=== PATIENT | female | born 1955 | race Caucasian/White ===

== ENCOUNTER 2020-04-25 10:09 | Outpatient (REF) | payer OTHER, SELFPAY ==
[2020-04-25 12:06] LABS: MANUAL DIFF FLAG NO
[2020-04-25 12:17] LABS: Basophils Absolute Auto 0.1 X10*3/uL (0.0-0.2); Basophils Percent Auto 1.3 % (0-2); Eosinophils Absolute Auto 0.2 X10*3/uL (0.0-0.4); Eosinophils Percent Auto 3.3 % (0-4); Hematocrit 46.5 % (37-47); Hemoglobin 14.9 g/dl (12.0-16.0); Imm Gran Abs Auto 0.01 X10*3/uL (0.00-0.03); Imm Gran Pct Auto 0.2 % (0.0-0.4); Lymphocytes Absolute Auto 2.2 X10*3/uL (1.2-4.9); Mean Corpuscular Volume 90.5 fL (80-98); Mean Platelet Volume 11.9 fL (9.4-12.3); Monocytes Absolute Auto 0.4 X10*3/uL (0.1-1.2); Monocytes Percent Auto 6.8 % (2-11); Neutrophils Absolute Auto 3.3 X10*3/uL (2.0-8.3); Neutrophils Percent Auto 53.4 % (45-73); Platelet Count 296 X10*3/uL (160-400); Red Blood Count 5.14 X10*6/uL (4.20-5.50); Red Cell Distribution Width 13.2 % (11.0-16.0); White Blood Count 6.2 X10*3/uL (4.8-10.8)
[2020-04-25 12:32] LABS: C Reactive Protein 1.03 mg/dL (< or = 0.50); Rheumatoid Factor < 15.0 IU/mL (<15.0)
[2020-04-25 12:48] LABS: Anion Gap 12 (12-20); Blood Urea Nitrogen 17 mg/dL (9-16); Calcium 8.9 mg/dL (8.4-10.2); Carbon Dioxide 25 mmol/L (22-29); Chloride 109 mmol/L (96-108); Estimated Glomerular Filt Rate 52; Glucose Random 93 mg/dL (60-115); Potassium 4.6 mmol/l (3.3-5.1); Sodium 141 mmol/L (135-145)
[2020-04-25 12:57] LABS: TSH reflex Free T4 2.97 mIU/mL (0.32-4.0)
[2020-04-25 13:01] LABS: Erythrocyte Sedimentation Rate 12 MM/HR (0-20)
[2020-04-26 13:57] LABS: Lyme Abs Screen <0.90 index
[2020-04-28 15:26] LABS: Anti Nuclear Antibody Screen NEGATIVE (NEGATIVE)
== END 2020-04-25 10:10 | disposition home or self-care (01) ==
LOC: HO.LAB 10:09
PROVIDERS: PCP Internal Medicine; Visit Provider Internal Medicine
DX: H83.03 Labyrinthitis, bilateral (principal); H46.9 Unspecified optic neuritis
CPT/HCPCS: 36415; 80048; 84443; 85025; 85652; 86038; 86039; 86140; 86431; 86618

== ENCOUNTER 2020-08-02 10:50 | Outpatient (REF) | payer OTHER, SELFPAY ==
[2020-08-02 11:28] LABS: MANUAL DIFF FLAG NO
[2020-08-02 11:32] LABS: Basophils Absolute Auto 0.1 X10*3/uL (0.0-0.2); Basophils Percent Auto 1.1 % (0-2); Eosinophils Absolute Auto 0.2 X10*3/uL (0.0-0.4); Eosinophils Percent Auto 3.2 % (0-4); Hematocrit 47.2 % (37-47); Hemoglobin 15.1 g/dl (12.0-16.0); Imm Gran Abs Auto 0.01 X10*3/uL (0.00-0.03); Imm Gran Pct Auto 0.2 % (0.0-0.4); Lymphocytes Absolute Auto 2.2 X10*3/uL (1.2-4.9); Lymphocytes Percent Auto 34.2 % (20-40); Mean Corpuscular Hemoglobin 29.2 pg (27.0-33.0); Mean Corpuscular Volume 91.3 fL (80-98); Mean Platelet Volume 11.1 fL (9.4-12.3); Monocytes Absolute Auto 0.4 X10*3/uL (0.1-1.2); Monocytes Percent Auto 6.2 % (2-11); Neutrophils Absolute Auto 3.5 X10*3/uL (2.0-8.3); Neutrophils Percent Auto 55.1 % (45-73); Platelet Count 275 X10*3/uL (160-400); Red Blood Count 5.17 X10*6/uL (4.20-5.50); Red Cell Distribution Width 13.3 % (11.0-16.0); White Blood Count 6.3 X10*3/uL (4.8-10.8)
[2020-08-02 11:42] LABS: Glucose Urine UA NEG (NEG); Leukocyte Esterase Urine 1+ (NEG); Nitrite Urine NEG (NEG); UACC Culture Trigger YES; Urine Blood NEG (NEG); Urine Ketones NEG (NEG); Urine Protein NEG (NEG-TRACE)
[2020-08-02 11:43] LABS: Appearance Urine CLEAR; Color Urine YELLOW
[2020-08-02 11:52] LABS: RBC Urine 0-2 /HPF (0); Squamous Epithelial Cell Urine TRACE /LPF
[2020-08-02 12:12] LABS: Erythrocyte Sedimentation Rate 6 MM/HR (0-20)
[2020-08-02 12:13] LABS: Alanine Aminotransferase 26 U/L (0-31); Albumin Level 4.5 g/dL (3.5-5.0); Alkaline Phosphatase 69 U/L (39-117); Anion Gap 11 (12-20); Aspartate Amino Transferase 19 U/L (5-31); Bilirubin Total 0.5 mg/dL (0.0-1.0); Blood Urea Nitrogen 14 mg/dL (9-16); Carbon Dioxide 26 mmol/L (22-29); Chloride 109 mmol/L (96-108); Cholesterol 225 mg/dL; Estimated Glomerular Filt Rate 51; Glucose Fasting 103 mg/dL (60-99); HDL Cholesterol 52 mg/dL; LDL Cholesterol Calculated 140 mg/dl; Potassium 4.4 mmol/l (3.3-5.1); Sodium 142 mmol/L (135-145); Total Protein 6.8 g/dL (6.5-8.0); Triglycerides 165 mg/dL
[2020-08-04 05:37] LABS: Folate 14.1 ng/mL (> or = 4.0); Vitamin B12 248 pg/mL (200-900)
== END 2020-08-02 10:51 | disposition home or self-care (01) ==
LOC: HO.LAB 10:50
PROVIDERS: PCP Internal Medicine; Visit Provider Internal Medicine
DX: E78.5 Hyperlipidemia, unspecified (principal); Z86.73 Personal history of transient ischemic attack (TIA), and cerebral infarction without residual deficits
CPT/HCPCS: 36415; 80053; 80061; 81001; 81003; 82607; 82746; 84443; 85025; 85652; 87086

== ENCOUNTER 2021-01-29 11:49 | Outpatient (REF) | payer MEDICARE, SELFPAY ==
[2021-01-29 12:56] LABS: MANUAL DIFF FLAG NO
[2021-01-29 13:06] LABS: Basophils Percent Auto 0.7 % (0-2); Eosinophils Absolute Auto 0.2 X10*3/uL (0.0-0.4); Eosinophils Percent Auto 3.2 % (0-4); Hematocrit 46.1 % (37-47); Hemoglobin 14.5 g/dl (12.0-16.0); Imm Gran Abs Auto 0.01 X10*3/uL (0.00-0.03); Imm Gran Pct Auto 0.2 % (0.0-0.4); Lymphocytes Absolute Auto 1.7 X10*3/uL (1.2-4.9); Lymphocytes Percent Auto 30.4 % (20-40); Mean Corpuscular HGB Conc 31.5 g/dl (31.0-35.0); Mean Platelet Volume 11.4 fL (9.4-12.3); Monocytes Absolute Auto 0.4 X10*3/uL (0.1-1.2); Monocytes Percent Auto 6.8 % (2-11); Neutrophils Absolute Auto 3.3 X10*3/uL (2.0-8.3); Neutrophils Percent Auto 58.7 % (45-73); Platelet Count 271 X10*3/uL (160-400); Red Blood Count 5.18 X10*6/uL (4.20-5.50); Red Cell Distribution Width 13.3 % (11.0-16.0); White Blood Count 5.6 X10*3/uL (4.8-10.8)
[2021-01-29 13:28] LABS: Anion Gap 12 (12-20); Blood Urea Nitrogen 15 mg/dL (9-16); Calcium 9.7 mg/dL (8.4-10.2); Carbon Dioxide 25 mmol/L (22-29); Chloride 110 mmol/L (96-108); Estimated Glomerular Filt Rate 44; Glucose Random 106 mg/dL (60-115); Potassium 4.5 mmol/L (3.3-5.1); Sodium 142 mmol/L (135-145)
[2021-01-29 13:51] LABS: T4 Thyroxine 7.8 ug/dL (4.5-12.0); Thyroid Stimulating Hormone 2.44 uIU/mL (0.32-4.0)
[2021-01-29 13:52] LABS: Erythrocyte Sedimentation Rate 7 MM/HR (0-20)
[2021-01-30 12:11] LABS: Lyme Abs Screen <0.90 index
[2021-02-02 17:57] LABS: Anti Nuclear Antibody Screen NEGATIVE (NEGATIVE)
== END 2021-01-29 11:50 | disposition home or self-care (01) ==
LOC: HO.LAB 11:49
PROVIDERS: PCP Internal Medicine; Visit Provider Psychiatry & Neurology Neurology
DX: G43.109 Migraine with aura, not intractable, without status migrainosus (principal)
CPT/HCPCS: 36415; 80048; 84436; 84443; 85025; 85652; 86038; 86039; 86617; 86618

== ENCOUNTER → 2021-02-18 08:29 | Outpatient (BNVA) | payer MEDICARE, SELFPAY | PROVIDERS: PCP Internal Medicine; Visit Provider Obstetrics & Gynecology ==

== ENCOUNTER 2021-06-23 08:28 | Outpatient (REF) | payer MEDICARE, SELFPAY ==
--- NOTE | ~2021-06-23 | MM_ITS ---
EXAMINATION: BONE DENSITOMETRY CLINICAL INDICATION: Asymptomatic menopausal state. COMPARISON: None (current study represents initial baseline exam). TECHNIQUE: Using a [employer] DXA System (software version: 13.1) manufactured by [employer], dual-energy x-ray absorptiometry was performed of the lumbar spine and left hip. The images are of good technical quality. Summary results are attached. FINDINGS: AP SPINE L1-L4: BMD 1.057 g/cm2, Z-score 0.1, T-score -1.0, normal. LEFT FEMUR, NECK: BMD 0.866 g/cm2, Z-score 0.0, T-score -1.2, osteopenia. LEFT FEMUR, TOTAL: BMD 0.987 g/cm2, Z-score 0.8, T-score -0.2, normal. IDENTIFIED RISK FACTORS: Recurrent falls, low calcium intake, anticonvulsants, menopause. HISTORY OF FRACTURE: None listed. MEDICATIONS: Multivitamin. MM/XR DEXA axial skeleton IMPRESSION: 1. DIAGNOSIS: Osteopenia based on the lowest T-score value of -1.2 in the femoral neck applying World Health Organization criteria. 2. 10-YEAR FRACTURE RISK PREDICTION, FRAX: Major osteoporotic fracture (clinical spine, forearm, hip or shoulder) 8.1%. Hip fracture 0.7%. 3. Treatment Recommendations: NOF guidelines recommend consideration for treatment in postmenopausal women and men age 50 and older presenting with the following: -A hip or vertebral (clinical or morphometric) fracture. -T-score less than or equal to -2.5 at the femoral neck or spine after appropriate evaluation to exclude secondary causes. -Low bone mass at the hip or spine and a 10-year fracture probability by FRAX of greater than or equal to 3% for hip fracture or greater than or equal to 20% for major osteoporotic fracture based on the [place] adapted WHO algorithm. 4. Other Recommendations: All treatment decisions require clinical judgment and consideration of individual patient factors, including patient preferences, comorbidities, previous drug use, risk factors not captured in the FRAX model (e.g. frailty, falls, vitamin D deficiency, increased bone turnover, interval significant decline in bone density) and possible under or overestimation of fracture risk by FRAX. Additional medical evaluation for secondary cause of low bone mineral density may be appropriate. FUTURE SCAN RECOMMENDATION: People with diagnosed cases of osteoporosis or at high risk for fracture should have regular bone mineral density tests. For patients eligible for Medicare, routine testing is allowed once every 2 years. The testing frequency can be increased to one year for patients who have rapidly progressing disease, those who are receiving or discontinuing medical therapy to restore bone mass, or have additional risk factors.
--- NOTE | ~2021-06-23 | MM_ITS ---
EXAMINATION: MM SCREENING DIGITAL BREAST TOMOSYNTHESIS, BILATERAL CLINICAL INFORMATION: Screening. Asymptomatic. The lifetime risk of breast cancer based on the Tyrer-Cuzick Model is 8%. COMPARISON: Outside mammography: 12/27/2018, 12/26/2017, 12/21/2016 ([facility]) TECHNIQUE: Digital breast tomosynthesis is performed in both the craniocaudal and mediolateral oblique views along with computer-aided detection (CAD). Synthesized 2D images are generated from the tomosynthesis. Additional left MLO view is provided. FINDINGS: There are scattered areas of fibroglandular density (ACR BI-RADS breast composition Category b). Parenchymal pattern is similar to prior outside exam. Fine fibronodular parenchymal pattern with minor nodularity are stable. There is no interval developing density or significant mass or architectural abnormality. No abnormal calcifications. The axilla and skin contours are unremarkable. MM/MM tomosynthesis screening BI IMPRESSION: No mammographic evidence of malignancy. ASSESSMENT: BI-RADS 2: Benign RECOMMENDATION: Routine annual mammography screening. This patient's information was entered into a reminder system with a target due date for their next mammogram.
== END 2021-06-23 08:29 | disposition home or self-care (01) ==
LOC: HO.MAMMO 08:28
PROVIDERS: Visit Provider Obstetrics & Gynecology
DX: Z12.31 Encounter for screening mammogram for malignant neoplasm of breast (principal); Z13.820 Encounter for screening for osteoporosis; M85.80 Other specified disorders of bone density and structure, unspecified site; Z78.0 Asymptomatic menopausal state; Z79.899 Other long term (current) drug therapy
CPT/HCPCS: 77063; 77067; 77080

== ENCOUNTER → 2021-07-13 15:48 | Outpatient (BNVA) | payer MEDICARE, SELFPAY | PROVIDERS: PCP Internal Medicine; Visit Provider Obstetrics & Gynecology | DX: M85.80 Other specified disorders of bone density and structure, unspecified site (principal) | CPT/HCPCS: Q3014 ==

== ENCOUNTER 2021-08-13 14:00 | Outpatient (RCR) | payer MEDICARE, SELFPAY ==
--- NOTE | 2021-10-28 07:41 | MHC.PT.DC ---
[facility] [place] [facility] [place] [facility] [place] [facility] [address] [phone] F: [phone] F: [phone] F: [phone] F: [phone] Physical Therapy Discharge Report Diagnosis: Lumbar DDD Date of Surgery: n/a Date of Evaluation: 05/26/21 Date of Discharge: 08/29/21 Treatments to Date: 14 Cancellations to Date: 0 No Shows to Date: 0 Discharge Status: Achieved Goals Improved Function Independent with HEP Discharge Summary: Pt met or progressed towards all STG and LTG. She is happy with progress and can appreciate functional improvements including walking, standing, lifting and transfers. She is I with HEP And appropriate to d/c to HEP at this time. Issued updated HEP today. Electronically signed by: Praveen Goins, PT Please sign and return to therapist. Thank you for your referral.
== END 2021-10-28 07:42 | disposition home or self-care (01) ==
LOC: HO.PTCHIC 14:00
PROVIDERS: PCP Internal Medicine; Visit Provider Nurse Practitioner Family
DX: M51.36 Other intervertebral disc degeneration, lumbar region (principal); R25.1 Tremor, unspecified; R53.1 Weakness
CPT/HCPCS: 97110; 97112; 97140; 97163; 97535

== ENCOUNTER 2021-10-27 11:18 | Outpatient (REF) | payer MEDICARE, SELFPAY ==
[2021-10-27 13:44] LABS: MANUAL DIFF FLAG NO
[2021-10-27 13:58] LABS: Basophils Absolute Auto 0.1 X10*3/uL (0.0-0.2); Basophils Percent Auto 1.2 % (0-2); Eosinophils Absolute Auto 0.3 X10*3/uL (0.0-0.4); Eosinophils Percent Auto 4.1 % (0-4); Imm Gran Abs Auto 0.02 X10*3/uL (0.00-0.03); Imm Gran Pct Auto 0.3 % (0.0-0.4); Lymphocytes Absolute Auto 2.3 X10*3/uL (1.2-4.9); Lymphocytes Percent Auto 35.2 % (20-40); Mean Corpuscular HGB Conc 31.3 g/dl (31.0-35.0); Mean Corpuscular Hemoglobin 27.8 pg (27.0-33.0); Mean Corpuscular Volume 89.1 fL (80.0-98.0); Mean Platelet Volume 11.2 fL (9.4-12.3); Monocytes Absolute Auto 0.5 X10*3/uL (0.1-1.2); Monocytes Percent Auto 7.4 % (2-11); Neutrophils Absolute Auto 3.5 x10*3/uL (2.0-8.3); Neutrophils Percent Auto 51.8 % (45-73); Platelet Count 302 X10*3/uL (160-400); Red Blood Count 5.39 X10*6/uL (4.20-5.50); White Blood Count 6.7 X10*3/uL (4.8-10.8)
[2021-10-27 14:18] LABS: Alanine Aminotransferase 24 U/L (0-31); Albumin Level 4.3 g/dL (3.5-5.0); Alkaline Phosphatase 65 U/L (39-117); Anion Gap 13 (12-20); Aspartate Amino Transferase 21 U/L (5-31); Bilirubin Total 0.6 mg/dL (0.0-1.0); Blood Urea Nitrogen 15 mg/dL (9-16); Calcium 9.2 mg/dL (8.4-10.2); Carbon Dioxide 22 mmol/L (22-29); Chloride 108 mmol/L (96-108); Cholesterol 251 mg/dL; Estimated Glomerular Filt Rate 42; Glucose Fasting 106 mg/dL (60-99); HDL Cholesterol 48 mg/dL; LDL Cholesterol Calculated 172 mg/dl; Potassium 4.2 mmol/L (3.3-5.1); Sodium 139 mmol/L (135-145); Total Protein 6.8 g/dL (6.5-8.0); Triglycerides 159 mg/dL
[2021-10-27 14:33] LABS: Vitamin B12 180 pg/mL (200-900)
[2021-10-27 14:37] LABS: Erythrocyte Sedimentation Rate 7 MM/HR (0-20)
== END 2021-10-27 11:19 | disposition home or self-care (01) ==
LOC: HO.HMGCLDS 11:18
PROVIDERS: PCP Internal Medicine; Visit Provider Psychiatry & Neurology Neurology
DX: E78.00 Pure hypercholesterolemia, unspecified (principal); E55.9 Vitamin D deficiency, unspecified; G45.9 Transient cerebral ischemic attack, unspecified; E53.8 Deficiency of other specified B group vitamins; R51.9 Headache, unspecified
CPT/HCPCS: 36415; 80053; 80061; 82306; 82607; 82746; 85025; 85652; 86140

== ENCOUNTER → 2021-12-30 09:57 | Outpatient (REF) | payer MEDICARE, SELFPAY ==
--- NOTE | 2021-12-30 10:03 | ECG_ITS ---
Test Reason : CHEST PAIN,JAW PAIN, EAR PAIN Blood Pressure : / mmHG Vent. Rate : 076 BPM Atrial Rate : 076 BPM P-R Int : 202 ms QRS Dur : 080 ms QT Int : 404 ms P-R-T Axes : 063 032 073 degrees QTc Int : 454 ms Normal sinus rhythm Cannot rule out Anterior infarct , age undetermined Abnormal ECG No previous ECGs available Referred By: Rigoberto Daniel Electronically Signed By:ENRIQUETA NOLAND MD
[2021-12-30 10:56] LABS: Troponin-I High Sensitivity < 3.5 ng/L (<3.5-17.0)
[2021-12-30 11:03] LABS: C Reactive Protein 1.19 mg/dL (< or = 0.50)
[2021-12-30 11:25] LABS: Erythrocyte Sedimentation Rate 10 MM/HR (0-20)
[2022-01-01 17:11] LABS: Homocysteine 13.7 umol/L (<10.4)
[2022-01-03 17:52] LABS: CK-BB None Detected (None Detected); CK-MB 0 % (<5); CK-MM 100 % (95-100); Creatine Kinase,Total,Serum 54 U/L (29-143)
== END ==
LOC: HO.CARD 09:57
PROVIDERS: PCP Internal Medicine; Visit Provider Internal Medicine
DX: I20.8 Other forms of angina pectoris (principal); R68.84 Jaw pain
CPT/HCPCS: 36415; 82552; 83090; 84484; 85652; 86140; 93005

== ENCOUNTER → 2022-02-25 10:05 | Outpatient (BNVA) | payer MEDICARE, SELFPAY | PROVIDERS: PCP Internal Medicine; Visit Provider Obstetrics & Gynecology | DX: Z01.419 Encounter for gynecological examination (general) (routine) without abnormal findings (principal) | CPT/HCPCS: 99212 ==

== ENCOUNTER 2022-04-26 10:16 | Outpatient (REF) | payer MEDICARE, SELFPAY ==
[2022-04-26 10:39] LABS: MANUAL DIFF FLAG NO
[2022-04-26 11:46] LABS: Basophils Absolute Auto 0.1 X10*3/uL (0.0-0.2); Eosinophils Absolute Auto 0.4 X10*3/uL (0.0-0.4); Hematocrit 46.7 % (37.0-47.0); Hemoglobin 14.8 g/dl (12.0-16.0); Imm Gran Abs Auto 0.02 X10*3/uL (0.00-0.03); Imm Gran Pct Auto 0.3 % (0.0-0.4); Lymphocytes Absolute Auto 2.1 X10*3/uL (1.2-4.9); Lymphocytes Percent Auto 29.3 % (20-40); Mean Corpuscular HGB Conc 31.7 g/dl (31.0-35.0); Mean Corpuscular Volume 88.3 fL (80.0-98.0); Monocytes Absolute Auto 0.5 X10*3/uL (0.1-1.2); Monocytes Percent Auto 6.8 % (2-11); Neutrophils Absolute Auto 4.1 x10*3/uL (2.0-8.3); Neutrophils Percent Auto 57.6 % (45-73); Platelet Count 252 X10*3/uL (160-400); Red Blood Count 5.29 X10*6/uL (4.20-5.50); Red Cell Distribution Width 14.1 % (11.0-16.0)
[2022-04-26 12:10] LABS: Alanine Aminotransferase 18 U/L (0-31); Albumin Level 4.4 g/dL (3.5-5.0); Alkaline Phosphatase 67 U/L (39-117); Anion Gap 17 (12-20); Aspartate Amino Transferase 16 U/L (5-31); Bilirubin Total 0.6 mg/dL (0.0-1.0); Blood Urea Nitrogen 15 mg/dL (9-16); Calcium 9.2 mg/dL (8.4-10.2); Carbon Dioxide 23 mmol/L (22-29); Chloride 107 mmol/L (96-108); Cholesterol 261 mg/dL; Estimated Glomerular Filt Rate 47; Glucose Fasting 103 mg/dL (60-99); HDL Cholesterol 50 mg/dL; LDL Cholesterol Calculated 175 mg/dl; Magnesium 2.3 mg/dL (1.6-2.6); Potassium 4.7 mmol/L (3.3-5.1); Sodium 142 mmol/L (135-145); Total Protein 7.1 g/dL (6.5-8.0); Triglycerides 180 mg/dL
[2022-04-26 12:28] LABS: TSH reflex Free T4 3.69 uIU/mL (0.32-4.0); Vitamin D 25-OH Total 46.8 ng/mL (>30)
[2022-04-26 12:31] LABS: Folate 7.1 ng/mL (> or = 4.0); Vitamin B12 577 pg/mL (200-900)
== END 2022-04-26 10:17 | disposition home or self-care (01) ==
LOC: HO.LAB 10:16
PROVIDERS: PCP Internal Medicine; Visit Provider Internal Medicine
DX: E83.42 Hypomagnesemia (principal); E78.00 Pure hypercholesterolemia, unspecified; I10 Essential (primary) hypertension; E53.8 Deficiency of other specified B group vitamins
CPT/HCPCS: 36415; 80053; 80061; 82306; 82607; 82746; 83735; 84443; 85025

== ENCOUNTER 2022-04-29 12:36 | Outpatient (REF) | payer MEDICARE, SELFPAY ==
[2022-04-29 14:12] LABS: Alanine Aminotransferase 17 U/L (0-31); Albumin Level 4.5 g/dL (3.5-5.0); Alkaline Phosphatase 66 U/L (39-117); Anion Gap 17 (12-20); Aspartate Amino Transferase 18 U/L (5-31); Blood Urea Nitrogen 12 mg/dL (9-16); Calcium 9.3 mg/dL (8.4-10.2); Carbon Dioxide 19 mmol/L (22-29); Chloride 110 mmol/L (96-108); Cholesterol 240 mg/dL; Estimated Glomerular Filt Rate 48; Glucose Fasting 97 mg/dL (60-99); HDL Cholesterol 49 mg/dL; LDL Cholesterol Calculated 161 mg/dl; Potassium 4.3 mmol/L (3.3-5.1); Sodium 142 mmol/L (135-145); Total Protein 7.3 g/dL (6.5-8.0); Triglycerides 150 mg/dL
[2022-04-29 14:46] LABS: Bilirubin Total 0.4 mg/dL (0.0-1.0)
[2022-05-04 22:32] LABS: Intrinsic Factor Antibodies Negative (Negative)
[2022-05-05 10:11] LABS: Methylmalonic Acid 144 nmol/L (87-318)
== END 2022-04-29 12:37 | disposition home or self-care (01) ==
LOC: HO.LAB 12:36
PROVIDERS: PCP Internal Medicine; Visit Provider Internal Medicine
DX: D51.0 Vitamin B12 deficiency anemia due to intrinsic factor deficiency (principal); E78.00 Pure hypercholesterolemia, unspecified
CPT/HCPCS: 36415; 80053; 80061; 83921; 86340

== ENCOUNTER 2022-08-18 16:19 | Outpatient (REF) | payer MEDICARE, SELFPAY ==
--- NOTE | ~2022-08-18 | US_ITS ---
EXAMINATION: US PELVIS CLINICAL INFORMATION: Abnormal findings on other diagnostic imaging. COMPARISON: None TECHNIQUE: Ultrasound of the pelvis is performed using both transabdominal and transvaginal transducers along with Doppler. Transvaginal imaging is performed due to inadequate visualization transabdominally. FINDINGS: Uterus: The uterus is anteverted and measures 6.9 x 4.0 x 4.4 cm. The double wall endometrial thickness is 1.4 mm. The endometrium appears heterogeneous and there is a question of a 5 x 3 mm polypoid mass. The uterus is smooth in contour and has normal myometrial echogenicity. No visible fibroid. Nabothian cysts are present in the cervix. Adnexa: Both ovaries are visualized. There is normal color flow to the adnexa. There is no ovarian torsion. There is no pelvic ascites or fluid collection. Right ovary measures 2.5 x 1.8 x 1.5 cm for a volume of 3.5 mL. Left ovary measures 2.0 x 0.9 x 0.8 cm for a volume of 0.8 mL. US/US pelvic and transvaginal IMPRESSION: The endometrium is thickened and heterogeneous with a question of a 5 x 3 mm polypoid mass. A follow-up ultrasound in one to two months could be performed to see if this is persistent and if so, hysteroscopy or hysterosonography may be of value for further evaluation.
== END 2022-08-18 16:20 | disposition home or self-care (01) ==
LOC: HO.US 16:19
PROVIDERS: Visit Provider Obstetrics & Gynecology
DX: R93.89 Abnormal findings on diagnostic imaging of other specified body structures (principal)
CPT/HCPCS: 76830; 76856

== ENCOUNTER → 2022-09-01 10:54 | Outpatient (BNVA) | payer MEDICARE, SELFPAY | PROVIDERS: PCP Internal Medicine; Visit Provider Obstetrics & Gynecology | DX: R93.5 Abnormal findings on diagnostic imaging of other abdominal regions, including retroperitoneum (principal) | CPT/HCPCS: 99212 ==

== ENCOUNTER 2022-09-10 09:50 | Outpatient (REF) | payer MEDICARE, SELFPAY ==
--- NOTE | ~2022-09-10 | MM_ITS ---
EXAMINATION: MM SCREENING DIGITAL BREAST TOMOSYNTHESIS, BILATERAL CLINICAL INFORMATION: Screening. Asymptomatic. The lifetime risk of breast cancer based on the Tyrer-Cuzick Model is 7%. COMPARISON: Mammography: 06/23/2021; outside mammography 12/27/2018, 12/26/2017 ([place]) TECHNIQUE: Digital breast tomosynthesis is performed in both the craniocaudal and mediolateral oblique views along with computer-aided detection (CAD). Synthesized 2D images are generated from the tomosynthesis. Additional right MLO view is provided. FINDINGS: There are scattered areas of fibroglandular density (ACR BI-RADS breast composition Category b). There are no significant masses, abnormal calcifications, or other abnormalities. Minor fibronodular densities are similar to prior exam. No developing density. No architectural abnormality or significant changes from prior studies. The axilla and skin contours are unremarkable. MM/MM tomosynthesis screening BI IMPRESSION: No mammographic evidence of malignancy. ASSESSMENT: BI-RADS 2: Benign RECOMMENDATION: Routine annual mammography screening. This patient's information was entered into a reminder system with a target due date for their next mammogram.
== END 2022-09-10 09:51 | disposition home or self-care (01) ==
LOC: HO.MAMMO 09:50
PROVIDERS: PCP Internal Medicine; Visit Provider Internal Medicine
DX: Z12.31 Encounter for screening mammogram for malignant neoplasm of breast (principal)
CPT/HCPCS: 77063; 77067

== ENCOUNTER 2022-09-17 08:44 | Day surgery (SDC) | payer MEDICARE, SELFPAY ==
[2022-09-13 20:07] VITALS: BMI 28.3
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
[2022-09-17] VITALS (11 sets, daily range): BP systolic 118–161; BP diastolic 54–84; PULSE 61–89; RESP 12–20; TEMP 36.2–36.9; O2SAT 97–98; BMI 28.3
--- NOTE | 2022-09-17 09:24 | MHC.SHP ---
Pre-Procedural Eval Section A Date of Service: 09/17/22 The patient is an INPATIENT: No Changes since office visit: No Cold of Flu in the past 2 weeks, No New Medical Problems, No Changes in Medication and No Patient answered all questions The History & Physical has been completed within 30 days and I have reviewed it.: Yes Section B Chief Complaint: Abnormal findings on diagnostic imaging of other Allergies: Allergies Allergy/AdvReac Type Severity Reaction Status Date / Time meperidine [Demerol] Allergy Severe anaphylaxis Verified 09/01/22 11:01 topiramate [Topamax] Allergy Mild metallic Verified 09/01/22 11:01 taste lactose Allergy Unknown Unknown Verified 09/01/22 11:01 Plan Diagnosis/Plan: Unchanged I have reviewed the history and physical and performed a pertinent physical examination on my patient. No changes have occurred unless specified. Time Spent With Patient Time: Total time managing care of this patient today ____ minutes.
[2022-09-17] MEDS: Lactated Ringers 1,000 ML 100 ML IVCONT (09:34)
--- NOTE | 2022-09-17 10:53 | P.OP_ITS ---
Operative Note Operative Note Date of Service: 09/17/22 Narrative: Preop Diagnosis: Endometrial polyp by US Operation: Diagnostic Hysteroscopy, Dilataion & Curettage and polypectomy Post Op Diagnosis: Endometrial Polyp QBL: Minimal Anesthesia: GLMA Surgeon: Toney Jarrell MD Digital Account Supervisor: None Complication: None Pathology: Endometrial Scrapings, Endometrial polyp Procedure: The patient was put in the dorsal lithotomy position, scrubbed, and draped in the usual manner. A sterile speculum was inserted in the patient's vagina. The anterior lip of the cervix was grasped with a single tooth tenaculum. The cervix was dilated up to 5 mm, then the scope was inserted in the patient's uterus. Inspection revealed endometrial polyp. The Myosure Reach device was used; it was introduced through the operative channel and polypectomy done with no complications. The scope was then taken out from the uterine cavity, sharp curettings was carried on with minimal to moderate amount of tissues retrieved. At the end of the procedure, all instruments were taken out of the patient uterine and vaginal cavity. The single tooth tenaculum was removed and homeostasis was assured using pressure,. The patient tolerated the procedure well and was transferred to the PACU in a stable condition.
--- NOTE | 2022-09-17 10:53 | P.BOP_ITS ---
Brief Operative Note Date of Service: 09/17/22 Pre-op diagnosis: Endometrial polyp by ultrasound Post-op diagnosis: same Procedure: Hysteroscopy D&C, Polypectomy Surgeon: Toney Jarrell MD Anesthesia: GLMA Was an Electronics System Mechanic used for this Procedure?: No Estimated blood loss (mL): 0 Pathology: other (Endometrial Scrapping. Polyp) Condition: stable Disposition: PACU
[2022-09-17] MEDS: fentaNYL citrate/PF 100 MCG/2 ML VIAL 25 MCG IVPUSH (11:46)
[2022-09-17] MEDS: Ketorolac Tromethamine 30 MG/ML VIAL 15 MG IVPUSH (11:51)
[2022-09-17] MEDS: Acetaminophen 325 MG TABLET 650 MG PO (11:54)
== END 2022-09-17 13:56 | disposition home or self-care (01) ==
PROVIDERS: PCP Internal Medicine; Visit Provider Obstetrics & Gynecology
PROC: 0UDB8ZZ Extraction of Endometrium, Via Natural or Artificial Opening Endoscopic (ICD-10-PCS; CPT 58558; principal; 2022-09-17 10:30)
DX: N85.02 Endometrial intraepithelial neoplasia [EIN] (principal); E78.5 Hyperlipidemia, unspecified; R25.1 Tremor, unspecified; G93.89 Other specified disorders of brain; Z86.73 Personal history of transient ischemic attack (TIA), and cerebral infarction without residual deficits; G43.109 Migraine with aura, not intractable, without status migrainosus; G96.191 Perineural cyst; E66.3 Overweight; Z68.29 Body mass index [BMI] 29.0-29.9, adult; Z79.899 Other long term (current) drug therapy; Z88.8 Allergy status to other drugs, medicaments and biological substances
CPT/HCPCS: 58558; 88305; J1885; J2405; J3010

== ENCOUNTER → 2022-09-22 13:28 | Outpatient (BNVA) | payer MEDICARE, SELFPAY | PROVIDERS: PCP Internal Medicine; Visit Provider Obstetrics & Gynecology | DX: N85.02 Endometrial intraepithelial neoplasia [EIN] (principal); E53.8 Deficiency of other specified B group vitamins; E55.9 Vitamin D deficiency, unspecified; Z78.0 Asymptomatic menopausal state | CPT/HCPCS: 99212 ==

== ENCOUNTER 2022-12-30 10:55 | Outpatient (REF) | payer MEDICARE, SELFPAY ==
[2022-12-30 11:11] LABS: MANUAL DIFF FLAG NO
[2022-12-30 12:00] LABS: Basophils Absolute Auto 0.1 X10*3/uL (0.0-0.2); Eosinophils Absolute Auto 0.2 X10*3/uL (0.0-0.4); Eosinophils Percent Auto 2.8 % (0-4); Hematocrit 45.5 % (37.0-47.0); Hemoglobin 14.6 g/dl (12.0-16.0); Imm Gran Abs Auto 0.01 X10*3/uL (0.00-0.03); Imm Gran Pct Auto 0.2 % (0.0-0.4); Lymphocytes Absolute Auto 1.8 X10*3/uL (1.2-4.9); Mean Corpuscular HGB Conc 32.1 g/dl (31.0-35.0); Mean Corpuscular Hemoglobin 28.5 pg (27.0-33.0); Mean Corpuscular Volume 88.7 fL (80.0-98.0); Mean Platelet Volume 11.4 fL (9.4-12.3); Monocytes Absolute Auto 0.4 X10*3/uL (0.1-1.2); Neutrophils Absolute Auto 3.7 x10*3/uL (2.0-8.3); Platelet Count 278 X10*3/uL (160-400); Red Blood Count 5.13 X10*6/uL (4.20-5.50); Red Cell Distribution Width 13.3 % (11.0-16.0); White Blood Count 6.1 X10*3/uL (4.8-10.8)
[2022-12-30 12:53] LABS: Alanine Aminotransferase 16 U/L (0-31); Albumin Level 4.3 g/dL (3.5-5.0); Alkaline Phosphatase 57 U/L (39-117); Anion Gap 10 (12-20); Aspartate Amino Transferase 15 U/L (5-31); Bilirubin Total 0.7 mg/dL (0.0-1.0); Blood Urea Nitrogen 14 mg/dL (9-16); Calcium 8.9 mg/dL (8.4-10.2); Carbon Dioxide 25 mmol/L (22-29); Chloride 112 mmol/L (96-108); Cholesterol 252 mg/dL; Estimated Glomerular Filt Rate 45; Glucose Fasting 100 mg/dL (60-99); HDL Cholesterol 49 mg/dL; LDL Cholesterol Calculated 167 mg/dl; Sodium 143 mmol/L (135-145); Total Protein 7.1 g/dL (6.5-8.0); Triglycerides 184 mg/dL; Vitamin D 25-OH Total 63.4 ng/mL (>30)
[2022-12-30 13:06] LABS: Folate 6.9 ng/mL (> or = 4.0); Vitamin B12 1314 pg/mL (200-900)
== END 2022-12-30 10:56 | disposition home or self-care (01) ==
LOC: HO.LAB 10:55
PROVIDERS: PCP Internal Medicine; Visit Provider Internal Medicine
DX: I10 Essential (primary) hypertension (principal); E53.8 Deficiency of other specified B group vitamins; E78.00 Pure hypercholesterolemia, unspecified; E55.9 Vitamin D deficiency, unspecified
CPT/HCPCS: 36415; 80053; 80061; 82306; 82607; 82746; 84443; 85025

== ENCOUNTER 2023-05-06 11:03 | Outpatient (REF) | payer MEDICARE, SELFPAY ==
[2023-05-06 11:16] LABS: MANUAL DIFF FLAG NO
[2023-05-06 11:59] LABS: Basophils Absolute Auto 0.1 X10*3/uL (0.0-0.2); Basophils Percent Auto 1.1 % (0-2); Eosinophils Absolute Auto 0.2 X10*3/uL (0.0-0.4); Eosinophils Percent Auto 3.3 % (0-4); Hematocrit 45.5 % (37.0-47.0); Hemoglobin 14.5 g/dl (12.0-16.0); Imm Gran Abs Auto 0.01 X10*3/uL (0.00-0.03); Imm Gran Pct Auto 0.2 % (0.0-0.4); Lymphocytes Absolute Auto 2.1 X10*3/uL (1.2-4.9); Lymphocytes Percent Auto 37.7 % (20-40); Mean Corpuscular HGB Conc 31.9 g/dl (31.0-35.0); Mean Corpuscular Hemoglobin 28.8 pg (27.0-33.0); Mean Corpuscular Volume 90.3 fL (80.0-98.0); Mean Platelet Volume 11.4 fL (9.4-12.3); Monocytes Absolute Auto 0.4 X10*3/uL (0.1-1.2); Neutrophils Absolute Auto 2.8 x10*3/uL (2.0-8.3); Neutrophils Percent Auto 50.7 % (45-73); Platelet Count 314 X10*3/uL (160-400); Red Blood Count 5.04 X10*6/uL (4.20-5.50); Red Cell Distribution Width 13.4 % (11.0-16.0); White Blood Count 5.5 X10*3/uL (4.8-10.8)
[2023-05-06 12:46] LABS: Alanine Aminotransferase 12 U/L (0-31); Albumin Level 4.3 g/dL (3.5-5.0); Alkaline Phosphatase 54 U/L (39-117); Anion Gap 13 (12-20); Aspartate Amino Transferase 15 U/L (5-31); Bilirubin Total 0.4 mg/dL (0.0-1.0); Blood Urea Nitrogen 14 mg/dL (9-16); Calcium 9.4 mg/dL (8.4-10.2); Carbon Dioxide 24 mmol/L (22-29); Chloride 107 mmol/L (96-108); Cholesterol 245 mg/dL (<200); Estimated Glomerular Filt Rate 44; Glucose Fasting 106 mg/dL (60-99); HDL Cholesterol 41 mg/dL (>40); LDL Cholesterol Calculated 174 mg/dL (<100); Potassium 4.1 mmol/L (3.3-5.1); Sodium 140 mmol/L (135-145); Triglycerides 154 mg/dL (<150)
[2023-05-06 13:02] LABS: TSH reflex Free T4 2.54 uIU/mL (0.32-4.0); Vitamin D 25-OH Total 87.3 ng/mL (>30)
[2023-05-06 13:10] LABS: Folate 4.2 ng/mL (> or = 4.0); Vitamin B12 1783 pg/mL (200-900)
== END 2023-05-06 11:04 | disposition home or self-care (01) ==
LOC: HO.LAB 11:03
PROVIDERS: PCP Internal Medicine; Visit Provider Internal Medicine
DX: E78.00 Pure hypercholesterolemia, unspecified (principal); E55.9 Vitamin D deficiency, unspecified; E53.8 Deficiency of other specified B group vitamins; I10 Essential (primary) hypertension
CPT/HCPCS: 36415; 80053; 80061; 82306; 82607; 82746; 84443; 85025

== ENCOUNTER 2023-05-09 10:49 | Outpatient (AMB) | payer MEDICARE, SELFPAY ==
[2023-05-09 10:55] VITALS: BP 126/78; PULSE 75; O2SAT 98; BMI 26.2
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
== END 2023-05-09 12:00 | disposition home or self-care (01) ==
PROVIDERS: PCP Internal Medicine; Visit Provider Internal Medicine
DX: G93.9 Disorder of brain, unspecified (principal); E53.8 Deficiency of other specified B group vitamins; G43.909 Migraine, unspecified, not intractable, without status migrainosus; E78.2 Mixed hyperlipidemia; M53.9 Dorsopathy, unspecified; N85.02 Endometrial intraepithelial neoplasia [EIN]; E66.3 Overweight
CPT/HCPCS: 99499

== ENCOUNTER 2023-05-09 13:47 | Outpatient (REF) | payer MEDICARE, SELFPAY ==
[2023-05-09 14:05] LABS: Appearance Urine Clear; Color Urine Yellow; Glucose Urine UA Negative (Negative); Leukocyte Esterase Urine Small (1+) (Negative); Nitrite Urine Negative (Negative); PH 6.5 (5.0-9.0); UMIC TRIGGER UACC YES; Urine Blood Negative (Negative); Urine Ketones Negative (Negative); Urine Protein Negative (Neg-Trace)
[2023-05-09 14:12] LABS: Bacteria Urine None Seen (None Seen); Hyaline Casts Urine 0-2 /LPF (0-2); RBC Urine 0-2 /HPF (0-2); Squamous Epithelial Cell Urine 0-2 /HPF (0-2); UACC Culture Trigger YES; WBC Urine 0-5 /HPF (0-5)
== END 2023-05-09 13:48 | disposition home or self-care (01) ==
LOC: HO.LNP 13:47
PROVIDERS: Visit Provider Internal Medicine
DX: R30.0 Dysuria (principal)
CPT/HCPCS: 81001; 81003; 87086

== ENCOUNTER 2023-09-05 10:45 | Outpatient (REF) | payer MEDICARE, SELFPAY ==
[2023-09-05 10:58] LABS: MANUAL DIFF FLAG NO
[2023-09-05 11:18] LABS: Basophils Absolute Auto 0.1 X10*3/uL (0.0-0.2); Basophils Percent Auto 1.4 % (0-2); Eosinophils Absolute Auto 0.1 X10*3/uL (0.0-0.4); Eosinophils Percent Auto 2.1 % (0-4); Hemoglobin 14.5 g/dl (12.0-16.0); Imm Gran Abs Auto 0.01 X10*3/uL (0.00-0.03); Imm Gran Pct Auto 0.2 % (0.0-0.4); Lymphocytes Absolute Auto 1.7 X10*3/uL (1.2-4.9); Lymphocytes Percent Auto 28.7 % (20-40); Mean Corpuscular HGB Conc 32.2 g/dl (31.0-35.0); Mean Corpuscular Hemoglobin 29.1 pg (27.0-33.0); Mean Corpuscular Volume 90.2 fL (80.0-98.0); Mean Platelet Volume 10.5 fL (9.4-12.3); Monocytes Absolute Auto 0.3 X10*3/uL (0.1-1.2); Monocytes Percent Auto 5.7 % (2-11); Neutrophils Absolute Auto 3.6 x10*3/uL (2.0-8.3); Neutrophils Percent Auto 61.9 % (45-73); Platelet Count 299 X10*3/uL (160-400); Red Blood Count 4.99 X10*6/uL (4.20-5.50); Red Cell Distribution Width 13.3 % (11.0-16.0); White Blood Count 5.8 X10*3/uL (4.8-10.8)
[2023-09-05 11:30] LABS: Estimated Average Glucose 100 mg/dL; Hemoglobin A1c % 5.1 % (<6.0)
[2023-09-05 11:57] LABS: Alanine Aminotransferase 10 U/L (0-31); Albumin Level 4.1 g/dL (3.5-5.0); Alkaline Phosphatase 53 U/L (39-117); Anion Gap 11 (12-20); Aspartate Amino Transferase 15 U/L (5-31); Bilirubin Total 0.4 mg/dL (0.0-1.0); Blood Urea Nitrogen 15 mg/dL (9-16); Calcium 8.8 mg/dL (8.4-10.2); Carbon Dioxide 23 mmol/L (22-29); Chloride 110 mmol/L (96-108); Cholesterol 234 mg/dL (<200); Estimated Glomerular Filt Rate 48; Glucose Fasting 103 mg/dL (60-99); HDL Cholesterol 48 mg/dL (>40); LDL Cholesterol Calculated 164 mg/dL (<100); Potassium 4.4 mmol/L (3.3-5.1); Sodium 140 mmol/L (135-145); Total Protein 6.6 g/dL (6.5-8.0); Triglycerides 110 mg/dL (<150)
[2023-09-05 12:15] LABS: TSH reflex Free T4 2.08 uIU/mL (0.32-4.0); Vitamin D 25-OH Total 51.7 ng/mL (>30)
[2023-09-05 12:19] LABS: Folate 5.4 ng/mL (> or = 4.0); Vitamin B12 892 pg/mL (200-900)
[2023-09-05 13:17] LABS: Appearance Urine Clear; Color Urine Yellow; Glucose Urine UA Negative (Negative); Leukocyte Esterase Urine Small (1+) (Negative); Nitrite Urine Negative (Negative); PH 5.5 (5.0-9.0); UMIC TRIGGER UACC YES; Urine Blood Negative (Negative); Urine Ketones Trace mg/dL (Negative); Urine Protein Negative (Neg-Trace)
[2023-09-05 13:45] LABS: Bacteria Urine None Seen (None Seen); Hyaline Casts Urine 0-2 /LPF (0-2); RBC Urine 0-2 /HPF (0-2); Squamous Epithelial Cell Urine 0-2 /HPF (0-2); UACC Culture Trigger YES; WBC Urine 0-5 /HPF (0-5)
== END 2023-09-05 10:46 | disposition home or self-care (01) ==
LOC: HO.LAB 10:45
PROVIDERS: PCP Internal Medicine; Visit Provider Internal Medicine
DX: G43.109 Migraine with aura, not intractable, without status migrainosus (principal); R73.01 Impaired fasting glucose; E78.00 Pure hypercholesterolemia, unspecified; E55.9 Vitamin D deficiency, unspecified; E53.8 Deficiency of other specified B group vitamins
CPT/HCPCS: 36415; 80053; 80061; 81001; 81003; 82306; 82607; 82746; 83036; 84443; 85025; 87086

== ENCOUNTER 2023-11-03 15:03 | Outpatient (REF) | payer MEDICARE, SELFPAY | END 2023-11-03 15:04 | disposition home or self-care (01) | LOC: HO.MAMMO 15:03 | PROVIDERS: PCP Internal Medicine; Visit Provider Internal Medicine | DX: Z12.31 Encounter for screening mammogram for malignant neoplasm of breast (principal) | CPT/HCPCS: 77063; 77067 ==

== ENCOUNTER → 2023-11-03 15:15 | Outpatient (BNV) | payer MEDICARE, SELFPAY | PROVIDERS: PCP Internal Medicine; Visit Provider Radiology Diagnostic Radiology | DX: Z12.31 Encounter for screening mammogram for malignant neoplasm of breast (principal) | CPT/HCPCS: 77063; 77067 ==

== ENCOUNTER 2024-04-16 09:07 | Outpatient (AMB) | payer MEDICARE, SELFPAY ==
[2024-04-16 09:20] VITALS: BP 138/86; PULSE 78; O2SAT 97; BMI 24.8
--- NOTE | 2024-04-16 09:20 | MHC.PC.OV ---
Vital Signs 04/16/24 09:20 Height 5 ft 3 in Weight 140 lb 2 oz BMI 24.8 BP 138/86 Blood Pressure Location Lt brachial Position Sitting Pulse 78 Pulse Source Pulse Oximeter Pulse Oximetry (%) 97 Oxygen Delivery Method Room Air Intake Visit Reasons: Medication Review - Refills Banquet Supervisor Required: No Accompanied by: Self / Same As Patient Allergies meperidine [Demerol] Allergy (Severe, Verified 04/16/24 09:48) anaphylaxis topiramate [Topamax] Allergy (Mild, Verified 04/16/24 09:48) metallic taste lactose Allergy (Unknown, Verified 04/16/24 09:48) Unknown Medication List - Last Reconciled 04/16/24 by Rigoberto Daniel MD amitriptyline 25 mg PO BEDTIME cholecalciferol (vitamin D3) 125 mcg PO DAILY 90 days cyanocobalamin (vitamin B-12) 1,000 mcg PO DAILY 90 days propranolol ER 80 mg PO BID topiramate 50 mg PO DAILY Tobacco use date assessed: 04/16/24 Fall risk assessment: No Falls in past year Last assessed Fall Risk: 04/16/24 Dental Screening Dental Screen Date: 04/16/24 Did you have a dental visit in the last 12 months?: Yes Did you have a dental problem in the last 6 months where you did not have access to dental care?: No Was dental information given to patient?: Patient has dentist HPI Medication Review - Refills HPI Details had seizure over weekend did not go to ER as she woke up with no issues has 4 Tarlov's cysts in lower spine - per exam in [place] - no records received [facility] Medical History (Updated 04/16/24 @ 09:59 by Rigoberto Daniel MD) GERD (gastroesophageal reflux disease) Tarlov cysts Vitamin D deficiency Vitamin B12 deficiency Migraine Overweight (BMI 25.0-29.9) Mixed hyperlipidemia TIA (transient ischemic attack) Obesity (BMI 30-39.9) Lumbar degenerative disc disease Tremor Migraine headache with aura Chronic back pain Brain stem lesion Labyrinthitis Optic neuritis Surgical History History of robot-assisted laparoscopic hysterectomy (~10/18/22) Family History Father Myocardial infarction Mother COPD (chronic obstructive pulmonary disease) Sister Diabetes Family/Other Diabetes Social History Housing: House Alcohol intake: never Patient Tobacco Use Status: Never used Tobacco e-Cigarette/Vaping Use: Never Used Second Hand Smoke Exposure: Yes service: No Current occupational status: employed 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 1. Little interest or pleasure in doing things: not at all 2. Feeling down, depressed, or hopeless: not at all 3. Trouble falling or staying asleep, or sleeping too much: not at all 4. Feeling tired or having little energy: not at all 5. Poor appetite or overeating: not at all 6. Feeling bad about yourself - or that you are a failure or have let yourself or your family down: not at all 7. Trouble concentrating on things, such as reading the newspaper or watching television: not at all 8. Moving or speaking so slowly that other people could have noticed. Or the opposite - being so fidgety or restless that you have been moving around a lot more than usual: not at all 9. Thoughts that you would be better off or of hurting yourself in some way: not at all Total score: 0 Depression Screening Interpretation: Negative Depression Screening Done: Yes 31355 - PHQ-9 Billing: Yes Source: Developed by Drs. Russel Marley, Sara Whiteside, Elvin Sales and colleagues, with an educational faraz from [employer]. Thrive Questionnaire Date Thrive assessed: 04/16/24 I am a: Patient What is your living situation today?: I have a steady place to live Within the past 12 months, did the food you bought not last and you didn't have the money to get more?: Never true Within the past 12 months, did you worry whether your food would run out before you got money to buy more?: Never true Do you have trouble paying for medicines?: No Do you have trouble getting transportation to medical appointments?: No Do you have trouble paying your heating and electricity bill?: No Do you have trouble taking care of your child, family member or friend?: No Do you have trouble with day-to-day activities such as bathing, preparing meals, shopping, managing finances, etc.?: No Are you currently unemployed and looking for a job?: No Are you interested in more education?: No Please select the resources that you would like help with: None Currently or been in a relationship where the following occur: No concerns reported THRIVE Score: 0 AUDIT C Alcohol Use Questionnaire (AUDIT-C) 1. How often do you have a drink containing alcohol?: Never 3. How often do you have six or more drinks on one occasion?: Never Total Score: 0 Score Reviewed/Action Taken: Yes XAVIER-7 AMB Questionnaire XAVIER-7 Date XAVIER - 7 assessed: 04/16/24 Feeling nervous, anxious, or on edge: 0 = Not at all Not being able to stop or control worryin = Not at all Worrying too much about different things: 0 = Not at all Trouble relaxin = Not at all Being so restless that it is hard to sit still: 0 = Not at all Becoming easily annoyed or irritable: 0 = Not at all Feeling afraid as if something awful might happen: 0 = Not at all Total XAVIER-7 score (0-4 normal; 5-9 mild; 10-14 moderate; 15-21 severe): 0 Source: Developed by Drs. Russel Marley, Sara Whtieside, Elvin Sales and colleagues, with an educational faraz from [employer]. XAVIER-7 Assessment Billing XAVIER-7 Assessment Tool: XAVIER-7 Assessment 45543 Physical exam (Primary Care) Vital Signs: Last Vital Signs Pulse 78 04/16/24 09:20 BP 138/86 04/16/24 09:20 Pulse Ox 97 04/16/24 09:20 Oxygen Delivery Method Room Air 04/16/24 09:20 BMI result Body Mass Index 24.8 Tobacco/Smoking Status: Tobacco use Status Tobacco use date assessed 04/16/24 04/16/24 09:31 Patient Tobacco Use Status Never used Tobacco 04/16/24 09:31 e-Cigarette/Vaping Use Never Used 04/16/24 09:31 PHQ-9: PHQ-9 Score PHQ-9: Total score 0 04/16/24 09:36 Depression Screening Interpretation: Negative Thrive Assessment: Date of Thrive Assessment Date Thrive assessed 04/16/24 04/16/24 09:31 Currently or been in a relationship where the following occur: No concerns reported Office Procedures Flu Questionnaire Does the patient have a severe egg allergy?: No Immunizations Fluarix Triv [id number] (PF) 45 mcg (15 mcg x 3)/0.5 mL IM syringe Performing Provider: Rigoberto Daniel MD [facility] Documented (not given) by: SUGAR Wilkes on 04/16/24 09:36 Reason Not Given: Patient Exempt Coding Additional Codes XAVIER-7 Assessment Billing - XAVIER-7 Assessment Tool: XAVIER-7 Assessment 37459 ([id number]) Assessment & Plan Assessment & Plan Orders: Orders Influenza [id number] Immunization Today Z23 - Encounter for immunization Comprehensive [place]. Panel Fast 4 Months E78.00 - Pure hypercholesterolemia, unspecified TSH reflex Free T4 4 Months E78.00 - Pure hypercholesterolemia, unspecified Vitamin D 25-OH Total 4 Months E55.9 - Vitamin D deficiency, unspecified Vitamin B12 and Folate 4 Months E53.8 - Deficiency of other specified B group vitamins Complete Blood Count Auto Diff 4 Months D64.9 - Anemia, unspecified Lipid Panel 4 Months E78.00 - Pure hypercholesterolemia, unspecified UA CC w/rflx Micro + Cult 4 Months R30.0 - Dysuria XR DEXA axial skeleton Today M85.80 - Other specified disorders of bone density and structure, unspecified site, Z78.0 - Asymptomatic menopausal state Referrals Cologuard Test Z12.11 - Encounter for screening for malignant neoplasm of colon, Z78.0 - Asymptomatic menopausal state Medications: Changed From amitriptyline 25 mg PO BEDTIME 30 tabs 2RF To amitriptyline 25 mg PO BEDTIME 90 days 90 tabs 1RF From topiramate 50 mg PO DAILY 90 tabs 0RF To topiramate 50 mg PO DAILY 90 days 90 tabs 1RF Refilled cholecalciferol (vitamin D3) 125 mcg PO DAILY 90 days 90 caps 3RF cyanocobalamin (vitamin B-12) 1,000 mcg PO DAILY 90 days 90 caps 3RF propranolol ER 80 mg PO BID 180 caps 3RF
== END 2024-04-16 10:04 | disposition home or self-care (01) ==
PROVIDERS: PCP Internal Medicine; Visit Provider Internal Medicine
DX: Z23 Encounter for immunization (principal)

== ENCOUNTER → 2024-04-16 09:07 | Outpatient (BNVA) | payer MEDICARE, SELFPAY | PROVIDERS: PCP Internal Medicine; Visit Provider Internal Medicine | DX: E78.00 Pure hypercholesterolemia, unspecified (principal); E55.9 Vitamin D deficiency, unspecified; D64.9 Anemia, unspecified; R30.0 Dysuria; G93.9 Disorder of brain, unspecified; E53.8 Deficiency of other specified B group vitamins; G43.909 Migraine, unspecified, not intractable, without status migrainosus; E78.2 Mixed hyperlipidemia; M53.9 Dorsopathy, unspecified; N85.02 Endometrial intraepithelial neoplasia [EIN]; M85.80 Other specified disorders of bone density and structure, unspecified site | CPT/HCPCS: 90471; 96127; 99212 ==

== ENCOUNTER 2024-08-17 09:30 | Outpatient (REF) | payer MEDICARE, SELFPAY ==
[2024-08-17 10:55] LABS: MANUAL DIFF FLAG NO
[2024-08-17 11:36] LABS: Basophils Absolute Auto 0.1 X10*3/uL (0.0-0.2); Basophils Percent Auto 1.5 % (0-2); Eosinophils Absolute Auto 0.1 X10*3/uL (0.0-0.4); Eosinophils Percent Auto 1.5 % (0-4); Hematocrit 45.4 % (37.0-47.0); Hemoglobin 14.2 g/dl (12.0-16.0); Imm Gran Abs Auto 0.02 X10*3/uL (0.00-0.03); Imm Gran Pct Auto 0.3 % (0.0-0.4); Lymphocytes Absolute Auto 1.7 X10*3/uL (1.2-4.9); Lymphocytes Percent Auto 26.3 % (20-40); Mean Corpuscular HGB Conc 31.3 g/dl (31.0-35.0); Mean Corpuscular Hemoglobin 27.6 pg (27.0-33.0); Mean Corpuscular Volume 88.3 fL (80.0-98.0); Mean Platelet Volume 10.9 fL (9.4-12.3); Monocytes Absolute Auto 0.4 X10*3/uL (0.1-1.2); Monocytes Percent Auto 5.4 % (2-11); Neutrophils Absolute Auto 4.3 x10*3/uL (2.0-8.3); Platelet Count 302 X10*3/uL (160-400); Red Blood Count 5.14 X10*6/uL (4.20-5.50); Red Cell Distribution Width 13.7 % (11.0-16.0); White Blood Count 6.5 X10*3/uL (4.8-10.8)
[2024-08-17 12:11] LABS: Alanine Aminotransferase 11 U/L (0-31); Albumin Level 4.3 g/dL (3.5-5.0); Alkaline Phosphatase 60 U/L (39-117); Anion Gap 9 (12-20); Aspartate Amino Transferase 17 U/L (5-31); Bilirubin Total 0.4 mg/dL (0.0-1.0); Blood Urea Nitrogen 20 mg/dL (9-16); Calcium 9.3 mg/dL (8.4-10.2); Carbon Dioxide 24 mmol/L (22-29); Chloride 110 mmol/L (96-108); Cholesterol 236 mg/dL (<200); Estimated Glomerular Filt Rate 56; Glucose Fasting 101 mg/dL (60-99); HDL Cholesterol 52 mg/dL (>40); LDL Cholesterol Calculated 156 mg/dL (<100); Sodium 139 mmol/L (135-145); Total Protein 7.3 g/dL (6.5-8.0); Triglycerides 141 mg/dL (<150)
[2024-08-17 12:25] LABS: Appearance Urine Clear; Color Urine Yellow; Glucose Urine UA Negative (Negative); Leukocyte Esterase Urine Small (1+) (Negative); Nitrite Urine Negative (Negative); PH 5.5 (5.0-9.0); Specific Gravity - Urine 1.025 (1.005-1.025); UMIC TRIGGER UACC YES; Urine Blood Negative (Negative); Urine Ketones Negative (Negative); Urine Protein Negative (Neg-Trace)
[2024-08-17 12:31] LABS: TSH reflex Free T4 2.38 uIU/mL (0.32-4.0); Vitamin D 25-OH Total 33.9 ng/mL (>30)
[2024-08-17 12:37] LABS: Folate 4.8 ng/mL (> or = 4.0); Vitamin B12 299 pg/mL (200-900)
[2024-08-17 12:40] LABS: Bacteria Urine None Seen (None Seen); Hyaline Casts Urine 0-2 /LPF (0-2); RBC Urine 0-2 /HPF (0-2); UACC Culture Trigger YES; WBC Urine 0-5 /HPF (0-5)
== END 2024-08-17 09:31 | disposition home or self-care (01) ==
LOC: HO.LAB 09:30
PROVIDERS: PCP Internal Medicine; Visit Provider Internal Medicine
DX: G93.9 Disorder of brain, unspecified (principal); E53.8 Deficiency of other specified B group vitamins; G43.909 Migraine, unspecified, not intractable, without status migrainosus; E78.2 Mixed hyperlipidemia; M53.9 Dorsopathy, unspecified; E55.9 Vitamin D deficiency, unspecified; N85.02 Endometrial intraepithelial neoplasia [EIN]; Z79.899 Other long term (current) drug therapy; D64.9 Anemia, unspecified; E78.00 Pure hypercholesterolemia, unspecified
CPT/HCPCS: 36415; 80053; 80061; 81001; 81003; 82306; 82607; 82746; 84443; 85025; 87086; 96127; 99212

== ENCOUNTER → 2024-08-17 09:30 | Outpatient (AMB) | payer MEDICARE, SELFPAY | END | disposition home or self-care (01) | PROVIDERS: PCP Internal Medicine; Visit Provider Internal Medicine ==

== ENCOUNTER 2024-11-08 15:06 | Outpatient (REF) | payer MEDICARE, SELFPAY | END 2024-11-08 15:07 | disposition home or self-care (01) | LOC: HO.MAMMO 15:06 | PROVIDERS: PCP Internal Medicine; Visit Provider Internal Medicine | DX: Z12.31 Encounter for screening mammogram for malignant neoplasm of breast (principal) | CPT/HCPCS: 77063; 77067 ==

== ENCOUNTER → 2024-11-08 15:15 | Outpatient (BNV) | payer MEDICARE, SELFPAY | PROVIDERS: PCP Internal Medicine; Visit Provider Internal Medicine | DX: Z12.31 Encounter for screening mammogram for malignant neoplasm of breast (principal) | CPT/HCPCS: 77063; 77067 ==

== ENCOUNTER 2025-01-08 10:55 | Outpatient (AMB) | payer MEDICARE, SELFPAY ==
[2025-01-08 11:07] VITALS: BP 148/96; PULSE 62; O2SAT 96; BMI 23.4
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
== END 2025-01-08 11:36 | disposition home or self-care (01) ==
LOC: HO.HMCH 10:56
PROVIDERS: PCP Internal Medicine; Visit Provider Internal Medicine
DX: E78.2 Mixed hyperlipidemia (principal); G43.909 Migraine, unspecified, not intractable, without status migrainosus; G93.9 Disorder of brain, unspecified; E53.8 Deficiency of other specified B group vitamins; E55.9 Vitamin D deficiency, unspecified; M53.9 Dorsopathy, unspecified; N85.02 Endometrial intraepithelial neoplasia [EIN]

== ENCOUNTER → 2025-01-08 10:55 | Outpatient (BNVA) | payer MEDICARE, SELFPAY | PROVIDERS: PCP Internal Medicine; Visit Provider Internal Medicine | DX: E78.2 Mixed hyperlipidemia (principal); G43.909 Migraine, unspecified, not intractable, without status migrainosus; G93.9 Disorder of brain, unspecified; E53.8 Deficiency of other specified B group vitamins; E55.9 Vitamin D deficiency, unspecified; M53.9 Dorsopathy, unspecified; N85.02 Endometrial intraepithelial neoplasia [EIN] | CPT/HCPCS: 96127; 99212 ==